=== PATIENT | female | born 1995 | race African-American/Black ===

== ENCOUNTER 2024-12-04 18:53 | Emergency (ER) | payer BC ==
[~2024-12-04] VITALS: Ht 149.9 cm; Wt 73.9 kg
[2024-12-04] MEDS: HYDROCODONE/APAP 5MG-325MG TAB PO ONE (21:29)
[2024-12-04] MEDS ORDERED: FLONASE ALLERG9.9 ML INH (22:35)
[2024-12-04 22:47] VITALS: PULSE 71; RESP 18; TEMP 97.8
[2024-12-04 22:48] VITALS: BP 136/90; PULSE 71; RESP 18; TEMP 97.8; O2SAT 99
== END 2024-12-04 22:51 | disposition home or self-care (01) ==
LOC: FSED 19:05
DX: G43.909 Migraine, unspecified, not intractable, without status migrainosus (principal); I10 Essential (primary) hypertension; J30.9 Allergic rhinitis, unspecified
CPT/HCPCS: 70450; 99284